=== PATIENT | male | born 1965 | race Caucasian/White ===

== ENCOUNTER 2018-04-03 11:48 | Inpatient (IN) | payer SELFPAY ==
[~2018-04-03] VITALS: Ht 157.5 cm; Wt 61.3 kg
[2018-04-03] MEDS ORDERED: SODIUM CHLORIDE 0.9% 1,000 ML IV ONE (13:00)
[2018-04-03 13:13] LABS: CLARITY URINE CLEAR (CLEAR); COLOR URINE YELLOW (YELLOW); KETONES URINE NEGATIVE (NEGATIVE); LEUKOCYTE ESTERASE URINE NEGATIVE (NEGATIVE); NITRITE URINE NEGATIVE (NEGATIVE); OCCULT BLOOD URINE NEGATIVE (NEGATIVE); PH URINE 7.5 (4.5-8.0); PROTEIN URINE TRACE (NEGATIVE); SPECIFIC GRAVITY URINE 1.015 (1.005-1.030); UROBILINOGEN URINE 0.2 E.U./dL (0.2-1.0)
[2018-04-03 14:02] LABS: *BARBITURATES SCREEN URINE NEGATIVE (NEGATIVE)
[2018-04-03 14:03] LABS: *AMPHETAMINES SCREEN URINE NEGATIVE (NEGATIVE); *BENZODIAZEPINES SCREEN URINE NEGATIVE (NEGATIVE); *COCAINE SCREEN URINE PRESUMTIVE POSITIVE (NEGATIVE); METHADONE URINE SCREEN NEGATIVE (NEGATIVE); OPIATES URINE SCREEN PRESUMTIVE POSITIVE (NEGATIVE); PHENCYCLIDINE URINE SCREEN NEGATIVE (NEGATIVE)
[2018-04-03 14:04] LABS: CANNABINOID URINE SCREEN NEGATIVE (NEGATIVE)
[2018-04-03 14:45] LABS: HEMATOCRIT. 38.5 % (42.0-52.0); HEMOGLOBIN. 12.8 g/dL (14.0-18.0); MEAN CORPUSCULAR HEMOGLOBIN 29.1 pg (28.0-32.0); MEAN CORPUSCULAR VOLUME 87.7 fL (80.0-94.0); MEAN PLATELET VOLUME 9.2 fl (7.4-10.4); PLATELET 287 x1000/uL (130-400); RED BLOOD CELL COUNT 4.39 mill/uL (4.7-6.1); RED CELL DISTRIBUTION WIDTH 14.6 % (11.6-14.6)
[2018-04-03] MEDS ORDERED: MORPHINE SULFATE 2 MG/ML CPJ (NOT FOR IM USE) IV ONE (14:45)
[2018-04-03 14:47] LABS: PROTHROMBIN TIME 10.2 sec (9.4-11.6)
[2018-04-03 14:48] LABS: CHLORIDE 102 mEq/L (98-107)
[2018-04-03 15:16] LABS: HEPATITIS B SURFACE ANTIGEN NEGATIVE
[2018-04-03 15:21] LABS: PLATELET ESTIMATE NORMAL
[2018-04-03 15:43] LABS: HEPATITIS B CORE AB IGM NEGATIVE
[2018-04-03 15:44] LABS: HEPATITIS A AB IGM NEGATIVE (NEGATIVE)
[2018-04-03] MEDS ORDERED: ONDANSETRON HCL 4MG/2ML VIAL IV ONE (18:45)
[2018-04-03] MEDS ORDERED: MORPHINE SULFATE 4 MG/ML CPJ (NOT FOR IM USE) IV ONE (18:45)
[2018-04-03] MEDS ORDERED: LEVOFLOXACIN 500MG PREMIX 100 ML IV ONE (19:45)
[2018-04-03] MEDS ORDERED: METRONIDAZOLE 500 MG PREMIX 100 ML IV ONE (19:45)
[2018-04-04 04:45] VITALS: BP 98/52
[2018-04-04 05:01] VITALS: BP 98/52
[2018-04-04] MEDS ORDERED: HYDROMORPHONE HCL/PF 2MG/ML CPJ IV PRN (07:00)
[2018-04-04] MEDS ORDERED: ONDANSETRON HCL 4MG/2ML VIAL IV PRN (07:00)
[2018-04-04] MEDS ORDERED: DIPHENHYDRAMINE 50MG/ML VIAL IV PRN (07:00)
[2018-04-04 08:00] VITALS: BP 100/53
[2018-04-04] MEDS ORDERED: METR500T PO (09:01)
[2018-04-04] MEDS ORDERED: CIPR-263 PO (09:01)
[2018-04-04] MEDS ORDERED: [UNRECOGNIZED DRUG - REMARK] (09:01)
[2018-04-04] MEDS ORDERED: HYDR-4086 PO (09:01)
[2018-04-04] MEDS: DEXT 5%/0.45% NACL 1000ML 1,000 ML IV SCH (10:11)
[2018-04-04] MEDS: ENOXAPARIN 40MG/0.4ML SYR SUBCUT SCH (10:12)
[2018-04-04] MEDS: METRONIDAZOLE 500 MG PREMIX 100 ML IV SCH ×3 (10:12→23:05)
[2018-04-04] MEDS: ACETAMINOPHEN 650MG SUPP PR PRN (10:22)
[2018-04-04 12:00] VITALS: BP 90/51
[2018-04-04 16:00] VITALS: BP 90/50
[2018-04-04 20:00] VITALS: BP 95/54
[2018-04-04] MEDS: LEVOFLOXACIN 500MG PREMIX 100 ML IV SCH (21:20)
[2018-04-05] VITALS (7 sets, daily range): BP systolic 82–102; BP diastolic 43–63
[2018-04-05] MEDS: ACETAMINOPHEN 650MG SUPP PR PRN (01:30)
[2018-04-05] MEDS: DEXT 5%/0.45% NACL 1000ML 1,000 ML IV SCH ×3 (05:03→21:11)
[2018-04-05] MEDS: METRONIDAZOLE 500 MG PREMIX 100 ML IV SCH ×3 (05:03→23:23)
[2018-04-05 07:11] LABS: BASOPHILS % 0.2 % (0.0-2.0); EOSINOPHILS % 7.4 % (0.0-5.0); HEMATOCRIT. 33.3 % (42.0-52.0); HEMOGLOBIN. 11.4 g/dL (14.0-18.0); LYMPHOCYTES % 9.4 % (20.0-50.0); MEAN CORPUSCULAR HEMOGLOBIN 29.7 pg (28.0-32.0); MEAN CORPUSCULAR VOLUME 86.9 fL (80.0-94.0); MONOCYTES % 6.3 % (2.0-8.0); NEUTROPHILS % 76.7 % (40.0-76.0); PLATELET 271 x1000/uL (130-400); RED BLOOD CELL COUNT 3.83 mill/uL (4.7-6.1); RED CELL DISTRIBUTION WIDTH 14.3 % (11.6-14.6)
[2018-04-05] MEDS: ENOXAPARIN 40MG/0.4ML SYR SUBCUT SCH (07:38)
[2018-04-05 07:58] LABS: CHLORIDE 104 mEq/L (98-107)
[2018-04-05] MEDS: POTASSIUM CHLORIDE 20MEQ TABLET SR PO SCH (12:15)
[2018-04-05] MEDS: MIDODRINE HCL 2.5MG TABLET PO SCH ×2 (12:16→16:16)
[2018-04-05] MEDS: LEVOFLOXACIN 500MG PREMIX 100 ML IV SCH (21:13)
[2018-04-06] VITALS: BP 103/52
[2018-04-06 04:00] VITALS: BP 91/56
[2018-04-06] MEDS: METRONIDAZOLE 500 MG PREMIX 100 ML IV SCH (05:05)
[2018-04-06 08:00] VITALS: BP 96/63
[2018-04-06] MEDS: ENOXAPARIN 40MG/0.4ML SYR SUBCUT SCH (08:58)
[2018-04-06] MEDS: POTASSIUM CHLORIDE 20MEQ TABLET SR PO SCH (08:59)
[2018-04-06] MEDS: MIDODRINE HCL 2.5MG TABLET PO SCH (09:02)
[2018-04-06 12:00] VITALS: BP 98/56
[2018-04-06 13:10] LABS: HIV 1 ABS Positive (Negative); HIV 2 ABS Negative (Negative); HIV SCREEN 4G Reactive (Non Reactive); INTERPRETATION HIV-1 Positive (.)
[2018-04-06 13:16] VITALS: BP 98/56
== END 2018-04-06 14:06 | disposition home or self-care (01) | DRG 249 ==
LOC: ER 11:55 → 8WST 19:29 → ENRESERV 04-04 01:52
PROVIDERS: ADMIT Hospitalist; ATTEND Hospitalist
DX: K52.9 Noninfective gastroenteritis and colitis, unspecified (principal); N17.0 Acute kidney failure with tubular necrosis; I31.3 Pericardial effusion (noninflammatory); E83.51 Hypocalcemia; E88.09 Other disorders of plasma-protein metabolism, not elsewhere classified; M46.90 Unspecified inflammatory spondylopathy, site unspecified; K59.00 Constipation, unspecified; M19.90 Unspecified osteoarthritis, unspecified site; E11.9 Type 2 diabetes mellitus without complications; Z90.49 Acquired absence of other specified parts of digestive tract; Z79.899 Other long term (current) drug therapy; Z91.81 History of falling
CPT/HCPCS: 36415; 71045; 74176; 80053; 80305; 81003; 83036; 83605; 83735; 83880; 84484; 85025; 85610; 86705; 86709; 86803; 87040; 87086; 87186; 87340; 93005; 96365; 96367; 96375; 99285; C1893; J1650; J1956; J2270; J2405; J3490; J7030